=== PATIENT | female | born 1945 | race Caucasian/White ===

== ENCOUNTER 2021-06-03 12:38 | Inpatient (IN) | payer MEDICARE ==
[2021-06-03 13:05] LABS: #Basophils 0.1 10x3/uL (0.0-0.2); #Eosinphils 0.1 10x3/uL (0.0-0.5); #Neutrophils 6.2 10x3/uL (1.5-8.4); %Basophils 0.5 % (0.0-2.0); %Eosinophils 0.5 % (0.0-6.0); %Lymphocytes 25.9 % (18.0-47.0); %Monocytes 9.7 % (0.0-10.0); Hemoglobin 13.1 g/dL (12.0-15.5); Mean Corpuscular HGB CONC 33.2 g/dL (32.0-36.0); Mean Corpuscular Hemoglobin 32.6 pg (27.0-33.0); Mean Platelet Volume 10.2 fl (7.4-10.4); Platelet Count 266 10x3/uL (150-450); RBC Distribution Width 12.5 % (11.5-14.5); Red Blood Cell (RBC) Count 4.02 10x6/uL (3.90-5.03); White Blood Cell (WBC) Count 9.8 10x3/uL (3.5-10.5)
[2021-06-03 13:11] LABS: Bilirubin 1+ (Negative); Blood, Urine Negative (Negative); Clarity Cloudy (Clear); Glucose, Urine (Dipstick) Normal (Negative); Ketone, Urine Negative (Negative); Leukocyte 500 (Negative); Nitrite Negative (Negative); Protein, Urine (Dipstick) 30 mg/dl (Neg-Trace)
[2021-06-03 13:15] LABS: INR-International Normal Ratio 0.9; PTT 25.6 sec (22.0-33.0); Prothrombin Time 10.5 sec (9.5-12.1)
[2021-06-03 13:22] LABS: RBC/HPF 0-3 HPF (0-3)
[2021-06-03 13:23] LABS: WBC/HPF Greater Than 50 HPF (0-3)
[2021-06-03 13:24] LABS: ALT (SGPT) 20 U/L (8-55); AST (SGOT) 25 U/L (5-34); Alkaline Phosphatase 133 U/L (40-110); Anion Gap 16 mmol/L (10-20); BUN (Urea Nitrogen) 24 mg/dL (9.8-20.1); Bacteria/HPF 4+ HPF (None Seen); Bilirubin, Total 0.4 mg/dL (0.2-1.2); CK (CPK) 89 U/L (29-168); Calc. Creatinine Clearance 0 mL/min (70-130); Calcium 8.7 mg/dL (7.8-10.44); Carbon Dioxide 31 mmol/L (23-31); Chloride 96 mmol/L (98-107); Globulin 2.7 g/dL (2.4-3.5); Glucose 75 mg/dL (83-110); Potassium 3.5 mmol/L (3.5-5.1); Protein, Total 6.7 g/dL (5.8-8.1); Sodium 139 mmol/L (136-145); Squamous Epithelial 0-3 HPF (0-3); Transitional Epithelial None Seen HPF (None Seen)
[2021-06-03] MEDS ORDERED: Cefepime 2 GM VIAL ONE (13:47)
[2021-06-03 13:57] LABS: SARS-CoV-2 NAA Rapid Test Not Detected (NotDetected)
[2021-06-03] MEDS ORDERED: FLU VACC QS2021-22(65YR UP)/PF 240 MCG/0.7 ML SYRINGE IM ONE (16:45)
[2021-06-03] MEDS ORDERED: Ondansetron ODT 4 MG TAB PO PRN (17:04)
[2021-06-03] MEDS ORDERED: Electrolyte Replacement Protocol 1 EACH FS SCH (17:15)
[2021-06-03] MEDS ORDERED: Potassium Chloride 20 MEQ TAB PO SCH (19:15)
[2021-06-03] MEDS ORDERED: Aspirin 325 mg Enteric Coated Tablet PO SCH (19:15)
[2021-06-03] MEDS ORDERED: Vancomycin 1.5 GRAM/300 ML BAG 1.5 GM in Premix Bag 1 BAG IVPB SCH (22:00)
[2021-06-03] MEDS: Atorvastatin Calcium 40 MG TAB PO SCH (22:11)
[2021-06-03] MEDS: Heparin 5,000 UNITS/ML VIAL SC SCH (22:11)
[2021-06-04 04:38] VITALS: BMI 25.0
[2021-06-04 05:09] LABS: #Basophils 0.1 10x3/uL (0.0-0.2); #Monocytes 0.5 10x3/uL (0.0-1.1); #Neutrophils 2.7 10x3/uL (1.5-8.4); %Eosinophils 0.8 % (0.0-6.0); %Monocytes 9.6 % (0.0-10.0); %Neutrophils 53.4 % (40.0-75.0); Hemoglobin 12.9 g/dL (12.0-15.5); Mean Corpuscular HGB CONC 32.4 g/dL (32.0-36.0); Mean Corpuscular Hemoglobin 32.4 pg (27.0-33.0); Mean Platelet Volume 10.2 fl (7.4-10.4); Platelet Count 227 10x3/uL (150-450); RBC Distribution Width 12.4 % (11.5-14.5); Red Blood Cell (RBC) Count 3.98 10x6/uL (3.90-5.03); White Blood Cell (WBC) Count 5.1 10x3/uL (3.5-10.5)
[2021-06-04 05:21] LABS: Anion Gap 14 mmol/L (10-20); BUN (Urea Nitrogen) 24 mg/dL (9.8-20.1); Calc. Creatinine Clearance 57 mL/min (70-130); Calcium 8.5 mg/dL (7.8-10.44); Carbon Dioxide 32 mmol/L (23-31); Cardiac Risk 2.4 (Less than 4.5); Chloride 99 mmol/L (98-107); Cholesterol 146 mg/dl (< 200 Desired); Glucose 84 mg/dL (83-110); HDL Cholesterol 61 mg/dL (>60 Neg Risk); LDL Cholesterol, Calculated 73 mg/dL; Magnesium 2.1 mg/dL (1.6-2.6); Potassium 4.5 mmol/L (3.5-5.1); Sodium 140 mmol/L (136-145); Triglycerides 59 mg/dL (Less than 150)
[2021-06-04] MEDS: Heparin 5,000 UNITS/ML VIAL SC SCH ×3 (10:36→20:49)
[2021-06-04] MEDS: Aspirin 81 mg Enteric Coated Tablet PO SCH (10:36)
[2021-06-04] MEDS: Cefepime 1 GM in Sodium Chloride 0.9% 100 ML IVPB SCH ×2 (10:36→20:48)
[2021-06-04 12:37] LABS: Hemoglobin A1c 4.9 % (4.0-6.0)
[2021-06-04] MEDS: busPIRone HCl 5 MG TAB PO SCH ×2 (15:50→20:49)
[2021-06-04] MEDS: Vancomycin HCl 1 GM in Sodium Chloride 0.9% 250 ML 250 ML IVPB SCH (15:51)
[2021-06-04] MEDS: Atorvastatin Calcium 40 MG TAB PO SCH (20:49)
[2021-06-04] MEDS: OXcarbazepine 300 MG TAB PO SCH (20:50)
[2021-06-04] MEDS ORDERED: Pramipexole Di-HCl 1 MG TAB PO SCH (22:45)
[2021-06-05] MEDS: Acetaminophen 325 MG TAB PO PRN ×2 (01:40→23:29)
[2021-06-05] MEDS ORDERED: Pregabalin 75 MG CAP PO SCH (01:45)
[2021-06-05 04:29] LABS: #Monocytes 0.4 10x3/uL (0.0-1.1); #Neutrophils 2.9 10x3/uL (1.5-8.4); %Basophils 0.8 % (0.0-2.0); %Eosinophils 0.8 % (0.0-6.0); %Lymphocytes 30.5 % (18.0-47.0); %Neutrophils 58.7 % (40.0-75.0); Mean Corpuscular HGB CONC 33.2 g/dL (32.0-36.0); Mean Corpuscular Hemoglobin 32.8 pg (27.0-33.0); Mean Corpuscular Volume 98.6 fl (81.6-98.3); Mean Platelet Volume 10.4 fl (7.4-10.4); Platelet Count 213 10x3/uL (150-450); Red Blood Cell (RBC) Count 3.66 10x6/uL (3.90-5.03); White Blood Cell (WBC) Count 4.9 10x3/uL (3.5-10.5)
[2021-06-05 04:46] LABS: Anion Gap 11 mmol/L (10-20); BUN (Urea Nitrogen) 12 mg/dL (9.8-20.1); Calc. Creatinine Clearance 78 mL/min (70-130); Calcium 8.2 mg/dL (7.8-10.44); Carbon Dioxide 31 mmol/L (23-31); Chloride 102 mmol/L (98-107); Glucose 95 mg/dL (83-110); Potassium 3.8 mmol/L (3.5-5.1); Sodium 140 mmol/L (136-145)
[2021-06-05] MEDS: busPIRone HCl 5 MG TAB PO SCH ×3 (08:59→21:46)
[2021-06-05] MEDS: Cefepime 1 GM in Sodium Chloride 0.9% 100 ML IVPB SCH ×2 (08:59→21:47)
[2021-06-05] MEDS: Aspirin 81 mg Enteric Coated Tablet PO SCH (08:59)
[2021-06-05] MEDS ORDERED: Pramipexole Di-HCl 0.25 MG TAB PO SCH ×2 (09:00→17:00)
[2021-06-05] MEDS: Vancomycin HCl 1 GM in Sodium Chloride 0.9% 250 ML 250 ML IVPB SCH (10:41)
[2021-06-05] MEDS: Levothyroxine Sodium 50 MCG TAB PO SCH (10:41)
[2021-06-05] MEDS: Heparin 5,000 UNITS/ML VIAL SC SCH ×3 (10:43→22:00)
[2021-06-05] MEDS ORDERED: Pramipexole Di-HCl 1 MG TAB PO SCH (21:00)
[2021-06-05] MEDS: Atorvastatin Calcium 40 MG TAB PO SCH (21:46)
[2021-06-05] MEDS: OXcarbazepine 300 MG TAB PO SCH (22:00)
[2021-06-06] MEDS: Levothyroxine Sodium 50 MCG TAB PO SCH (05:50)
[2021-06-06 06:01] VITALS: TEMP 96.8
[2021-06-06 08:26] VITALS: BP 134/65
[2021-06-06] MEDS: busPIRone HCl 5 MG TAB PO SCH (09:13)
[2021-06-06] MEDS: Aspirin 81 mg Enteric Coated Tablet PO SCH (09:13)
[2021-06-06] MEDS: Heparin 5,000 UNITS/ML VIAL SC SCH (09:14)
[2021-06-06] MEDS: Cefepime 1 GM in Sodium Chloride 0.9% 100 ML IVPB SCH (09:16)
== END 2021-06-06 12:52 | disposition home or self-care (01) | DRG 689 ==
LOC: CSHERS 12:38 → CSHTELE 16:02
PROVIDERS: ADMIT Emergency Medicine; ATTEND Family Medicine
DX: N39.0 Urinary tract infection, site not specified (principal); G93.41 Metabolic encephalopathy; N17.9 Acute kidney failure, unspecified; L03.116 Cellulitis of left lower limb; L03.115 Cellulitis of right lower limb; R47.01 Aphasia; Z20.822 Contact with and (suspected) exposure to COVID-19; E03.9 Hypothyroidism, unspecified; G25.81 Restless legs syndrome; F31.9 Bipolar disorder, unspecified; G62.9 Polyneuropathy, unspecified; N18.2 Chronic kidney disease, stage 2 (mild); R47.81 Slurred speech; I12.9 Hypertensive chronic kidney disease with stage 1 through stage 4 chronic kidney disease, or unspecified chronic kidney disease; N32.81 Overactive bladder; Z90.710 Acquired absence of both cervix and uterus; Z90.89 Acquired absence of other organs; Z98.51 Tubal ligation status; Z98.890 Other specified postprocedural states; Z87.891 Personal history of nicotine dependence
CPT/HCPCS: 36415; 70450; 70553; 71045; 80048; 80053; 80061; 81003; 81015; 82550; 83036; 83605; 83735; 84443; 84484; 85025; 85610; 85730; 87040; 87077; 87086; 87186; 93005; 93306; 93880; 94760; 96365; J0692; J1644; J3370; J3490; J7050; U0002

== ENCOUNTER 2021-08-28 13:54 | Outpatient (CLI) | payer MEDICARE, OTHER | END 2021-08-28 13:55 | disposition home or self-care (01) | LOC: CSHMAMMO 13:54 | PROVIDERS: ATTEND Internal Medicine | DX: Z12.31 Encounter for screening mammogram for malignant neoplasm of breast (principal); Z13.820 Encounter for screening for osteoporosis; Z12.2 Encounter for screening for malignant neoplasm of respiratory organs; M54.16 Radiculopathy, lumbar region | CPT/HCPCS: 71271; 72148; 77063; 77067; 77080 ==

== ENCOUNTER 2021-09-17 17:27 | Inpatient (IN) | payer MEDICARE, OTHER ==
[2021-09-17 18:07] LABS: #Monocytes 0.6 10x3/uL (0.0-1.1); %Basophils 0.6 % (0.0-2.0); %Eosinophils 0.6 % (0.0-6.0); %Lymphocytes 43.3 % (18.0-47.0); %Monocytes 8.6 % (0.0-10.0); %Neutrophils 46.7 % (40.0-75.0); Hemoglobin 13.2 g/dL (12.0-15.5); Mean Corpuscular HGB CONC 33.5 g/dL (32.0-36.0); Mean Corpuscular Volume 95.4 fl (81.6-98.3); Mean Platelet Volume 9.7 fl (7.4-10.4); Platelet Count 240 10x3/uL (150-450); RBC Distribution Width 13.6 % (11.5-14.5); Red Blood Cell (RBC) Count 4.13 10x6/uL (3.90-5.03); White Blood Cell (WBC) Count 6.4 10x3/uL (3.5-10.5)
[2021-09-17 18:15] LABS: ALT (SGPT) 29 U/L (8-55); AST (SGOT) 38 U/L (5-34); Alkaline Phosphatase 100 U/L (40-110); Anion Gap 13 mmol/L (10-20); BUN (Urea Nitrogen) 16 mg/dL (9.8-20.1); Bilirubin, Total 0.3 mg/dL (0.2-1.2); Calc. Creatinine Clearance 0 mL/min (70-130); Calcium 9.3 mg/dL (7.8-10.44); Carbon Dioxide 35 mmol/L (23-31); Chloride 98 mmol/L (98-107); Globulin 2.5 g/dL (2.4-3.5); Glucose 85 mg/dL (83-110); Potassium 4.5 mmol/L (3.5-5.1); Protein, Total 6.5 g/dL (5.8-8.1); Sodium 141 mmol/L (136-145)
[2021-09-17] MEDS ORDERED: Furosemide 40 MG/4 ML VIAL ONE (18:22)
[2021-09-17 20:12] LABS: SARS-CoV-2 NAA Rapid Test Not Detected (NotDetected)
[2021-09-17 23:50] VITALS: BMI 25.0
[2021-09-17] MEDS ORDERED: Ondansetron PF 4 MG/2 ML Vial IVP PRN (23:52)
[2021-09-17] MEDS ORDERED: Guaifenesin DM 100-10/5 ML UDCUP PO PRN (23:52)
[2021-09-17] MEDS ORDERED: Senokot S 8.6-50 MG TAB PO PRN (23:52)
[2021-09-17] MEDS ORDERED: Calcium Carbonate 500 MG ChewTAB PO PRN (23:52)
[2021-09-17] MEDS ORDERED: Acetaminophen 325 MG TAB ONE (23:55)
[2021-09-18] MEDS ORDERED: methylPREDNISolone Sod Succ/PF 125 MG/2 ML VIAL IVP SCH (00:15)
[2021-09-18] MEDS: Acetaminophen 325 MG TAB PO PRN ×3 (04:27→20:31)
[2021-09-18 04:54] LABS: BUN (Urea Nitrogen) 13 mg/dL (9.8-20.1); Calc. Creatinine Clearance 68 mL/min (70-130); Calcium 9.2 mg/dL (7.8-10.44); Glucose 109 mg/dL (83-110)
[2021-09-18 05:05] LABS: Anion Gap 15 mmol/L (10-20); Carbon Dioxide 36 mmol/L (23-31); Chloride 94 mmol/L (98-107); Sodium 141 mmol/L (136-145)
[2021-09-18] MEDS: Levothyroxine Sodium 50 MCG TAB PO SCH (06:25)
[2021-09-18] MEDS: Aspirin 81 mg Enteric Coated Tablet PO SCH (10:41)
[2021-09-18] MEDS: Metoprolol Tartrate 25 MG TAB PO SCH ×2 (10:41→21:37)
[2021-09-18] MEDS: Losartan Potassium 50 MG TAB PO SCH (10:41)
[2021-09-18] MEDS: Enoxaparin Sodium 40 MG/0.4 ML SYRINGE SC SCH (10:43)
[2021-09-18] MEDS: Furosemide 40 MG/4 ML VIAL SLOW IVP SCH (10:43)
[2021-09-18] MEDS: busPIRone HCl 5 MG TAB PO SCH ×3 (10:43→20:30)
[2021-09-18 13:23] LABS: Actual Bicarbonate (HCO3a) 33.5 mEq/L (22-28); Base Excess (BEa) 7.6 mEq/L (-2.0 to +3.0); CO2 Tension 51.4 mmHg (35.0-45.0); Calcium, Ionized (arterial) 1.14 mmol/L (1.12-1.30); Carboxyhemoglobin (COHb) 0.5 gm% (0.0-3.0); Hemoglobin (Hb) 14.8 g/dL (12.0-16.0); Puncture Site LRA; pH, Arterial 7.43 (7.35-7.45)
[2021-09-18] MEDS ORDERED: Pramipexole Di-HCl 0.25 MG TAB PO SCH (17:00)
[2021-09-18] MEDS: methylPREDNISolone Sod Succ 40 MG VIAL IVP SCH (20:28)
[2021-09-18] MEDS ORDERED: Atorvastatin Calcium 40 MG TAB PO SCH (21:00)
[2021-09-18] MEDS ORDERED: OXcarbazepine 300 MG TAB PO SCH (21:00)
[2021-09-18] MEDS ORDERED: Pramipexole Di-HCl 1 MG TAB PO SCH (21:00)
[2021-09-18] MEDS ORDERED: Pregabalin 75 MG CAP PO SCH (21:00)
[2021-09-19] MEDS: methylPREDNISolone Sod Succ 40 MG VIAL IVP SCH ×3 (00:04→11:46)
[2021-09-19] MEDS: Levothyroxine Sodium 50 MCG TAB PO SCH (06:14)
[2021-09-19] MEDS: Losartan Potassium 50 MG TAB PO SCH (11:45)
[2021-09-19] MEDS: Aspirin 81 mg Enteric Coated Tablet PO SCH (11:45)
[2021-09-19] MEDS: busPIRone HCl 5 MG TAB PO SCH (11:46)
[2021-09-19] MEDS: Metoprolol Tartrate 25 MG TAB PO SCH (11:46)
[2021-09-19] MEDS: Enoxaparin Sodium 40 MG/0.4 ML SYRINGE SC SCH (11:47)
[2021-09-19] MEDS: Furosemide 40 MG/4 ML VIAL SLOW IVP SCH (11:47)
[2021-09-19] MEDS: Acetaminophen 325 MG TAB PO PRN (11:57)
[2021-09-19 14:10] LABS: Base Excess (BEa) 3.4 mEq/L (-2.0 to +3.0); CO2 Tension 42.3 mmHg (35.0-45.0); Calcium, Ionized (arterial) 1.12 mmol/L (1.12-1.30); Carboxyhemoglobin (COHb) 0.8 gm% (0.0-3.0); Hemoglobin (Hb) 14.9 g/dL (12.0-16.0); O2 Tension (PaO2), arterial 69.7 mmHg (> 70.0); Potassium - ABG Lab 3.5 mmol/L (3.70-5.30); Puncture Site LRA; pH, Arterial 7.44 (7.35-7.45)
[2021-09-19 14:12] LABS: ALV-art Gradient 27.155 mmHg (0-20)
[2021-09-19 15:46] VITALS: BP 105/49; TEMP 97.3
== END 2021-09-19 18:15 | disposition home or self-care (01) | DRG 189 ==
LOC: CSHERS 17:27 → CSHTELE 23:36 → OBSVTOIN 23:36
PROVIDERS: ADMIT Student in an Organized Health Care Education/Training Program; ATTEND Internal Medicine
DX: J96.01 Acute respiratory failure with hypoxia (principal); I50.32 Chronic diastolic (congestive) heart failure; I13.0 Hypertensive heart and chronic kidney disease with heart failure and stage 1 through stage 4 chronic kidney disease, or unspecified chronic kidney disease; E87.3 Alkalosis; G62.9 Polyneuropathy, unspecified; F31.9 Bipolar disorder, unspecified; Z20.822 Contact with and (suspected) exposure to COVID-19; E03.9 Hypothyroidism, unspecified; G47.33 Obstructive sleep apnea (adult) (pediatric); N18.2 Chronic kidney disease, stage 2 (mild); G25.81 Restless legs syndrome; Z90.49 Acquired absence of other specified parts of digestive tract; Z90.710 Acquired absence of both cervix and uterus; Z99.81 Dependence on supplemental oxygen; Z87.891 Personal history of nicotine dependence; Z98.51 Tubal ligation status; Z91.018 Allergy to other foods; Z79.899 Other long term (current) drug therapy; Z79.82 Long term (current) use of aspirin; Z79.2 Long term (current) use of antibiotics; Z98.890 Other specified postprocedural states
CPT/HCPCS: 36600; 71045; 71275; 80048; 80053; 82805; 83880; 84484; 85025; 93005; 94640; 94760; 96374; G0378; J1650; J1940; J2920; J2930; J7620; U0002

== ENCOUNTER 2021-10-11 12:48 | Outpatient (CLI) | payer MEDICARE, OTHER | END 2021-10-11 12:49 | disposition home or self-care (01) | LOC: CSHLAB 12:48 | PROVIDERS: ATTEND Internal Medicine | DX: Z20.822 Contact with and (suspected) exposure to COVID-19 (principal) | CPT/HCPCS: 87811 ==

== ENCOUNTER 2021-10-15 08:53 | Outpatient (CLI) | payer MEDICARE, OTHER | END 2021-10-15 08:54 | disposition home or self-care (01) | LOC: CSHCP 08:53 | PROVIDERS: ATTEND Internal Medicine | DX: R06.00 Dyspnea, unspecified (principal); J44.9 Chronic obstructive pulmonary disease, unspecified | CPT/HCPCS: 94060; 94726; 94729; 94760 ==

== ENCOUNTER 2022-07-10 09:57 | Emergency (ER) | payer MEDICARE, OTHER ==
[2022-07-10 11:08] LABS: #Basophils 0.1 10x3/uL (0.0-0.2); #Monocytes 0.6 10x3/uL (0.0-1.1); #Neutrophils 4.7 10x3/uL (1.5-8.4); %Basophils 0.9 % (0.0-2.0); %Eosinophils 0.4 % (0.0-6.0); %Lymphocytes 28.8 % (18.0-47.0); %Monocytes 7.9 % (0.0-10.0); %Neutrophils 60.8 % (40.0-75.0); Hemoglobin 11.1 g/dL (12.0-15.5); Mean Corpuscular HGB CONC 32.6 g/dL (32.0-36.0); Mean Corpuscular Hemoglobin 29.5 pg (27.0-33.0); Mean Corpuscular Volume 90.7 fl (81.6-98.3); Mean Platelet Volume 9.2 fl (7.4-10.4); Platelet Count 420 10x3/uL (150-450); RBC Distribution Width 15.2 % (11.5-14.5); Red Blood Cell (RBC) Count 3.76 10x6/uL (3.90-5.03); White Blood Cell (WBC) Count 7.7 10x3/uL (3.5-10.5)
[2022-07-10 11:30] LABS: ALT (SGPT) 20 U/L (8-55); AST (SGOT) 18 U/L (5-34); Albumin 3.5 g/dL (3.4-4.8); Alkaline Phosphatase 85 U/L (40-110); Anion Gap 11 mmol/L (10-20); BUN (Urea Nitrogen) 10 mg/dL (9.8-20.1); Bilirubin, Total 0.3 mg/dL (0.2-1.2); Calc. Creatinine Clearance 0 mL/min (70-130); Calcium 8.7 mg/dL (7.8-10.44); Carbon Dioxide 29 mmol/L (23-31); Chloride 96 mmol/L (98-107); Estimated GFR 91; Globulin 2.6 g/dL (2.4-3.5); Glucose 91 mg/dL (83-110); Lipase 87 U/L (8-78); Potassium 4.6 mmol/L (3.5-5.1); Protein, Total 6.1 g/dL (5.8-8.1); Sodium 131 mmol/L (136-145)
[2022-07-10 15:02] LABS: Troponin I 0.012 ng/mL (< 0.028)
== END 2022-07-10 16:05 | disposition home or self-care (01) ==
LOC: CSHERS 09:57
DX: R07.9 Chest pain, unspecified (principal); I10 Essential (primary) hypertension; E03.9 Hypothyroidism, unspecified; Z87.891 Personal history of nicotine dependence
CPT/HCPCS: 36415; 71045; 80053; 83690; 84484; 85025; 93005

== ENCOUNTER 2024-04-13 10:28 | Outpatient (CLI) | payer MEDICARE, OTHER | END 2024-04-13 10:29 | disposition home or self-care (01) | LOC: CSHRAD 10:28 | PROVIDERS: ATTEND Internal Medicine | DX: M79.652 Pain in left thigh (principal) ==